=== PATIENT | female | born 1935 | race Caucasian/White ===

== ENCOUNTER 2018-01-12 11:02 | Inpatient (IN) ==
[2018-01-12] MEDS ORDERED: ASPIRIN 325 MG TABLET PO STA (11:42)
[2018-01-12] MEDS ORDERED: ONDANSETRON 4 MG/2 ML VIAL IV STA (11:42)
[2018-01-12] MEDS ORDERED: SODIUM CHLORIDE 0.9% 500 ML IV STA (11:42)
[2018-01-12 12:09] LABS: Basophils % 0.2 % (0.0-0.8); Eosinophils # 0.1 10*3/uL (0.0-0.87); Eosinophils % 1.5 % (0.00-10.9); Hematocrit 38.1 VOL% (35.7-47.0); Hemoglobin 12.9 GM/DL (12.0-16.0); Immature Granulocytes % 0.3 %; Immature Granulocytes Absolute 0.02 #; Lymphocytes % 15.6 % (21.3-54.2); Mean Corpuscular HGB Conc 33.9 GM/DL (32-36); Mean Corpuscular Hemoglobin 32 PG (27-34); Mean Corpuscular Volume 92.9 FL (87-102); Mean Platelet Volume 10.2 FL (9.6-12.0); Monocytes # 0.7 10*3/uL (0.11-0.8); Monocytes % 11.3 % (1.7-12.7); Neutrophils # 4.7 10*3/uL (1.4-7.4); Neutrophils % 71.1 % (38.7-73.9); Platelet Count 176 T/CUMM (130-400); Red Cell Distribution Width 12.6 % (9.3-17.3); White Blood Count 6.6 T/CUMM (4-12)
[2018-01-12 12:15] LABS: Apearance,Urine CLOUDY (Clear); Bacteria,Urine Many /HPF (Few); Bilirubin,Urine Negative (Negative); Blood, Urine Negative (Negative); Glucose,Urine (UA) Negative (Negative); Granular Casts,Urine 15 /LPF (0-1); Hyaline Casts,Urine 168 /LPF (0-3); Ketones,Urine Negative (Negative); Mucus,Urine Moderate /LPF (Occasional); Nitrite,Urine Negative (Negative); Protein,Urine 100 MG/DL; RBC,Urine 2 /HPF (0-4); Squamous Epithelial Cell,Urine Few /HPF (0-10); Urine Color Amber (Yellow); Urine Specific Gravity 1.016 (1.001-1.035); WBC,Urine 5 /HPF (0-6)
[2018-01-12] MEDS ORDERED: cefTRIAXone 1,000 MG in SODIUM CHLORIDE 0.9% 100 ML IV STA (12:25)
[2018-01-12 12:28] LABS: Barbiturates Screen,Urine Negative (Negative); Benzodiazepines Screen,Urine Negative (Negative); Cannabinoid Screen,Urine Negative (Negative); Opiate Screen,Urine Negative (Negative); Phencyclidine Screen,Urine Negative (Negative)
[2018-01-12 12:32] LABS: Alanine Aminotransferase 17 U/L (13-56); Albumin 3.6 G/DL (3.4-5.0); Alkaline Phosphatase 100 U/L (45-117); Aspartate Amino Transferase 14 U/L (0-37); Blood Urea Nitrogen 25 MG/DL (7-18); Calcium 8.8 MG/DL (8.5-10.1); Glucose 102 MG/DL (74-106); Osmolality,Calculated 284.3 MOS/KG (273-304); Potassium 3.8 MMOL/L (3.5-5.1); Sodium 141 MMOL/L (136-145); Total Protein 6.6 G/DL (6.4-8.3); Troponin I Only < 0.015 NG/ML (0.00-0.045)
[2018-01-12] MEDS ORDERED: cefTRIAXone 1,000 MG VIAL ONE (12:33)
[2018-01-12] MEDS ORDERED: ACETAMINOPHEN 325 MG TABLET PO PRN (13:25)
[2018-01-12] MEDS ORDERED: ENOXAPARIN 40 MG/0.4 ML SYRINGE SUBCUT SCH (13:30)
[2018-01-12 14:00] LABS: Thyroid Stimulating Hormone 0.345 uIU/ml (0.358-3.74)
[2018-01-12] MEDS: SODIUM CHLORIDE 0.9% 1,000 ML IV SCH (17:12)
[2018-01-12] MEDS: CARVEDILOL 12.5 MG TABLET PO SCH (20:46)
[2018-01-12] MEDS: METOPROLOL TARTRATE 50 MG TABLET PO SCH (20:47)
[2018-01-12] MEDS: APIXABAN 2.5 MG TABLET PO SCH (20:47)
[2018-01-12] MEDS: FLECAINIDE 50 MG TABLET PO SCH (20:50)
[2018-01-13 05:09] LABS: Basophils % 0.4 % (0.0-0.8); Eosinophils # 0.1 10*3/uL (0.0-0.87); Eosinophils % 2.4 % (0.00-10.9); Hemoglobin 12.6 GM/DL (12.0-16.0); Immature Granulocytes % 0.4 %; Immature Granulocytes Absolute 0.02 #; Lymphocytes # 1.5 10*3/uL (1.4-4.0); Lymphocytes % 28.4 % (21.3-54.2); Mean Corpuscular Hemoglobin 32 PG (27-34); Mean Corpuscular Volume 91.1 FL (87-102); Mean Platelet Volume 10.1 FL (9.6-12.0); Monocytes # 0.7 10*3/uL (0.11-0.8); Monocytes % 13.1 % (1.7-12.7); Neutrophils % 55.3 % (38.7-73.9); Platelet Count 171 T/CUMM (130-400); Red Blood Count 3.95 MC/CUMM (3.8-5.5); Red Cell Distribution Width 12.5 % (9.3-17.3); White Blood Count 5.4 T/CUMM (4-12)
[2018-01-13 05:53] LABS: Albumin 3.2 G/DL (3.4-5.0); Calcium 8.6 MG/DL (8.5-10.1); Osmolality,Calculated 285.8 MOS/KG (273-304); Potassium 3.5 MMOL/L (3.5-5.1); Total Protein 5.8 G/DL (6.4-8.3); VLDL CHOLESTEROL 26.8 MG/DL
[2018-01-13] MEDS: SODIUM CHLORIDE 0.9% 1,000 ML IV SCH (06:18)
[2018-01-13] MEDS ORDERED: LEVOTHYROXINE 75 MCG TABLET PO SCH (06:30)
[2018-01-13] MEDS ORDERED: cefTRIAXone 1,000 MG in SYRINGE 1 EACH IV SCH (09:00)
[2018-01-13] MEDS ORDERED: MULTIVITAMIN (OCUVITE) TABLET PO SCH (09:00)
[2018-01-13] MEDS ORDERED: PANTOPRAZOLE 40 MG TABLET PO SCH ×2 (09:00)
[2018-01-13] MEDS ORDERED: DILTIAZEM CD 240 MG CAPSULE PO SCH (09:00)
[2018-01-13] MEDS ORDERED: ASPIRIN EC 81 MG TABLET PO SCH (09:00)
[2018-01-13] MEDS: CARVEDILOL 12.5 MG TABLET PO SCH (09:47)
[2018-01-13] MEDS: METOPROLOL TARTRATE 50 MG TABLET PO SCH (09:47)
[2018-01-13] MEDS: FLECAINIDE 50 MG TABLET PO SCH (09:47)
[2018-01-13] MEDS: APIXABAN 2.5 MG TABLET PO SCH (09:47)
[2018-01-13] MEDS ORDERED: FLECAINIDE 100 MG TABLET PO SCH (09:49)
[2018-01-13 11:54] VITALS: BP 127/70
[2018-01-13] MEDS ORDERED: CARVEDILOL 25 MG TABLET PO SCH ×2 (13:30→21:00)
== END 2018-01-13 15:20 | disposition home or self-care (01) | DRG 312 ==
LOC: N.ED 11:02 → N.EDINP 13:23 → N.TELES 14:21

== ENCOUNTER 2018-04-15 10:27 | Observation (INO) ==
[2018-04-15] MEDS ORDERED: SODIUM CHLORIDE 0.9% 500 ML IV STA (10:49)
[2018-04-15 11:58] LABS: Basophils % 0.4 % (0.0-0.8); Eosinophils # 0.1 10*3/uL (0.0-0.87); Eosinophils % 1.3 % (0.00-10.9); Hematocrit 41.1 VOL% (35.7-47.0); Hemoglobin 14.1 GM/DL (12.0-16.0); Immature Granulocytes % 0.3 %; Immature Granulocytes Absolute 0.02 #; Lymphocytes # 1.5 10*3/uL (1.4-4.0); Lymphocytes % 18.9 % (21.3-54.2); Mean Corpuscular HGB Conc 34.3 GM/DL (32-36); Mean Corpuscular Hemoglobin 32 PG (27-34); Mean Corpuscular Volume 92.2 FL (87-102); Mean Platelet Volume 10.2 FL (9.6-12.0); Monocytes # 0.6 10*3/uL (0.11-0.8); Monocytes % 7.8 % (1.7-12.7); Neutrophils # 5.6 10*3/uL (1.4-7.4); Neutrophils % 71.3 % (38.7-73.9); Platelet Count 203 T/CUMM (130-400); Red Blood Count 4.46 MC/CUMM (3.8-5.5); Red Cell Distribution Width 13.1 % (9.3-17.3); White Blood Count 7.9 T/CUMM (4-12)
[2018-04-15 12:06] LABS: INR 1.1; PT Patient Result 11.3 SECS
[2018-04-15 12:29] LABS: Albumin 3.6 G/DL (3.4-5.0); Bilirubin,Total 1.1 MG/DL (0.2-1.0); Calcium 9.3 MG/DL (8.5-10.1); Osmolality,Calculated 286.8 MOS/KG (273-304); Potassium 3.7 MMOL/L (3.5-5.1); Thyroid Stimulating Hormone 1.68 uIU/ml (0.358-3.74); Total Protein 6.6 G/DL (6.4-8.3)
[2018-04-15 13:04] LABS: Apearance,Urine CLEAR (Clear); Bilirubin,Urine Negative (Negative); Blood, Urine Negative (Negative); Glucose,Urine (UA) Negative (Negative); Ketones,Urine 5 mg/dL (Negative); Mucus,Urine Occasional /LPF (Occasional); Nitrite,Urine Negative (Negative); Protein,Urine Negative; RBC,Urine <1 /HPF (0-4); Urine Color Yellow (Yellow); Urine Urobilinogen < 2.0 EU/DL (0.2-1.0); WBC,Urine <1 /HPF (0-6)
[2018-04-15] MEDS ORDERED: LABETALOL 100 MG/20 ML VIAL IV PRN (14:02)
[2018-04-15] MEDS ORDERED: FUROSEMIDE 40 MG TABLET PO PRN (14:08)
[2018-04-15] MEDS ORDERED: POTASSIUM CHLORIDE 20 MEQ TABLET PO PRN (14:08)
[2018-04-15 15:18] LABS: Risk Ratio 3.81
[2018-04-15 17:02] LABS: Barbiturates Screen,Urine Negative (Negative); Benzodiazepines Screen,Urine Negative (Negative); Cannabinoid Screen,Urine Negative (Negative); Opiate Screen,Urine Negative (Negative); Phencyclidine Screen,Urine Negative (Negative)
[2018-04-15] MEDS: CARVEDILOL 25 MG TABLET PO SCH ×2 (18:42→20:45)
[2018-04-15] MEDS: APIXABAN 2.5 MG TABLET PO SCH (20:35)
[2018-04-15] MEDS: FLECAINIDE 100 MG TABLET PO SCH (20:35)
[2018-04-15] MEDS: ROSUVASTATIN 20 MG TABLET PO SCH (20:36)
[2018-04-16 04:18] LABS: Basophils % 0.2 % (0.0-0.8); Eosinophils # 0.2 10*3/uL (0.0-0.87); Eosinophils % 2.6 % (0.00-10.9); Hematocrit 37.6 VOL% (35.7-47.0); Hemoglobin 12.5 GM/DL (12.0-16.0); Immature Granulocytes % 0.2 %; Immature Granulocytes Absolute 0.01 #; Lymphocytes # 1.9 10*3/uL (1.4-4.0); Lymphocytes % 28.7 % (21.3-54.2); Mean Corpuscular HGB Conc 33.2 GM/DL (32-36); Mean Corpuscular Hemoglobin 31 PG (27-34); Mean Corpuscular Volume 92.2 FL (87-102); Mean Platelet Volume 10.5 FL (9.6-12.0); Monocytes # 0.8 10*3/uL (0.11-0.8); Monocytes % 11.7 % (1.7-12.7); Neutrophils # 3.7 10*3/uL (1.4-7.4); Neutrophils % 56.6 % (38.7-73.9); Platelet Count 189 T/CUMM (130-400); Red Blood Count 4.08 MC/CUMM (3.8-5.5); Red Cell Distribution Width 13.1 % (9.3-17.3); White Blood Count 6.6 T/CUMM (4-12)
[2018-04-16 04:25] LABS: Calcium 8.8 MG/DL (8.5-10.1); Osmolality,Calculated 282.1 MOS/KG (273-304); Potassium 3.2 MMOL/L (3.5-5.1)
[2018-04-16] MEDS ORDERED: ACETAMINOPHEN 325 MG TABLET PO ONE (05:49)
[2018-04-16] MEDS: POTASSIUM CHLORIDE 20 MEQ TABLET PO PRN ×2 (06:01→10:19)
[2018-04-16] MEDS: LEVOTHYROXINE 75 MCG TABLET PO SCH (06:01)
[2018-04-16] MEDS: MULTIVITAMIN (OCUVITE) TABLET PO SCH (10:17)
[2018-04-16] MEDS: FLECAINIDE 100 MG TABLET PO SCH (10:17)
[2018-04-16] MEDS: PANTOPRAZOLE 40 MG TABLET PO SCH (10:17)
[2018-04-16] MEDS: VALSARTAN 80 MG TABLET PO SCH (10:17)
[2018-04-16] MEDS: CARVEDILOL 25 MG TABLET PO SCH ×2 (10:17→20:46)
[2018-04-16] MEDS: ASPIRIN EC 81 MG TABLET PO SCH (10:18)
[2018-04-16] MEDS: APIXABAN 2.5 MG TABLET PO SCH (10:18)
[2018-04-16] MEDS: APIXABAN 5 MG TABLET PO SCH (20:46)
[2018-04-16] MEDS: AMIODARONE 200 MG TABLET PO SCH (20:46)
[2018-04-16] MEDS: ROSUVASTATIN 20 MG TABLET PO SCH (20:46)
[2018-04-17] MEDS: LEVOTHYROXINE 75 MCG TABLET PO SCH (06:08)
[2018-04-17 07:05] LABS: Calcium 8.6 MG/DL (8.5-10.1); Potassium 3.9 MMOL/L (3.5-5.1)
[2018-04-17 08:03] VITALS: BP 124/66
[2018-04-17] MEDS: MULTIVITAMIN (OCUVITE) TABLET PO SCH (09:06)
[2018-04-17] MEDS: VALSARTAN 80 MG TABLET PO SCH (09:06)
[2018-04-17] MEDS: CARVEDILOL 25 MG TABLET PO SCH (09:06)
[2018-04-17] MEDS: APIXABAN 5 MG TABLET PO SCH (09:06)
[2018-04-17] MEDS: ASPIRIN EC 81 MG TABLET PO SCH (09:09)
[2018-04-17] MEDS: AMIODARONE 200 MG TABLET PO SCH (09:09)
[2018-04-17] MEDS: PANTOPRAZOLE 40 MG TABLET PO SCH (09:09)
[2018-04-17] MEDS ORDERED: CYANOCOBALAMIN 1000 MCG/1 ML VIAL IM ONE (09:30)
== END 2018-04-17 10:28 | disposition home or self-care (01) ==
LOC: EDUNIT# → EDBD → N.ED 10:27 → N.EDINP 10:27 → N.2E 17:54
PROVIDERS: ADMIT Internal Medicine; ATTEND Internal Medicine

== ENCOUNTER 2018-04-19 11:22 | Inpatient (IN) ==
[2018-04-19 12:50] LABS: Basophils % 0.3 % (0.0-0.8); Eosinophils # 0.1 10*3/uL (0.0-0.87); Eosinophils % 0.7 % (0.00-10.9); Hematocrit 40.9 VOL% (35.7-47.0); Hemoglobin 13.8 GM/DL (12.0-16.0); Immature Granulocytes % 0.4 %; Immature Granulocytes Absolute 0.03 #; Lymphocytes # 1.1 10*3/uL (1.4-4.0); Lymphocytes % 14.1 % (21.3-54.2); Mean Corpuscular HGB Conc 33.7 GM/DL (32-36); Mean Corpuscular Hemoglobin 32 PG (27-34); Mean Corpuscular Volume 93.4 FL (87-102); Mean Platelet Volume 10.3 FL (9.6-12.0); Monocytes # 0.9 10*3/uL (0.11-0.8); Monocytes % 11.6 % (1.7-12.7); Neutrophils # 5.4 10*3/uL (1.4-7.4); Neutrophils % 72.9 % (38.7-73.9); Platelet Count 196 T/CUMM (130-400); Red Blood Count 4.38 MC/CUMM (3.8-5.5); White Blood Count 7.4 T/CUMM (4-12)
[2018-04-19 13:18] LABS: Albumin 3.7 G/DL (3.4-5.0); Bilirubin,Total 0.7 MG/DL (0.2-1.0); Calcium 9.4 MG/DL (8.5-10.1); Osmolality,Calculated 279.4 MOS/KG (273-304); Potassium 4.3 MMOL/L (3.5-5.1)
[2018-04-19] MEDS ORDERED: CEFTAROLINE 600 MG in SODIUM CHLORIDE 0.9% 100 ML IV STA (13:23)
[2018-04-19] MEDS ORDERED: ONDANSETRON 4 MG/2 ML VIAL IV PRN (13:25)
[2018-04-19] MEDS ORDERED: ACETAMINOPHEN 325 MG TABLET PO PRN (13:25)
[2018-04-19] MEDS ORDERED: FUROSEMIDE 40 MG TABLET PO PRN (13:27)
[2018-04-19] MEDS ORDERED: SODIUM CHLORIDE 0.45% 1,000 ML IV SCH (13:30)
[2018-04-19] MEDS ORDERED: traMADol 50 MG TABLET PO PRN (16:31)
[2018-04-19] MEDS: CEFTAROLINE 600 MG in SODIUM CHLORIDE 0.9% 100 ML IV SCH (18:00)
[2018-04-19] MEDS: DOCUSATE SODIUM 100 MG CAPSULE PO SCH (20:41)
[2018-04-19] MEDS: ROSUVASTATIN 20 MG TABLET PO SCH (20:41)
[2018-04-19] MEDS: APIXABAN 2.5 MG TABLET PO SCH (20:41)
[2018-04-19] MEDS: AMIODARONE 200 MG TABLET PO SCH (20:41)
[2018-04-20 05:17] LABS: Calcium 8.5 MG/DL (8.5-10.1); Osmolality,Calculated 282.1 MOS/KG (273-304); Potassium 3.6 MMOL/L (3.5-5.1)
[2018-04-20 05:31] LABS: Basophils % 0.2 % (0.0-0.8); Eosinophils # 0.1 10*3/uL (0.0-0.87); Eosinophils % 2.3 % (0.00-10.9); Hematocrit 34.4 VOL% (35.7-47.0); Hemoglobin 12.1 GM/DL (12.0-16.0); Immature Granulocytes % 0.3 %; Immature Granulocytes Absolute 0.02 #; Lymphocytes # 1.5 10*3/uL (1.4-4.0); Lymphocytes % 23.7 % (21.3-54.2); Mean Corpuscular HGB Conc 35.2 GM/DL (32-36); Mean Corpuscular Hemoglobin 32 PG (27-34); Mean Corpuscular Volume 89.6 FL (87-102); Mean Platelet Volume 10.5 FL (9.6-12.0); Monocytes # 0.8 10*3/uL (0.11-0.8); Monocytes % 13.1 % (1.7-12.7); Neutrophils # 3.7 10*3/uL (1.4-7.4); Neutrophils % 60.4 % (38.7-73.9); Platelet Count 191 T/CUMM (130-400); Red Blood Count 3.84 MC/CUMM (3.8-5.5); Red Cell Distribution Width 13.1 % (9.3-17.3); White Blood Count 6.2 T/CUMM (4-12)
[2018-04-20] MEDS: CEFTAROLINE 600 MG in SODIUM CHLORIDE 0.9% 100 ML IV SCH ×2 (06:04→17:18)
[2018-04-20] MEDS: LEVOTHYROXINE 75 MCG TABLET PO SCH (06:04)
[2018-04-20] MEDS: ASPIRIN EC 81 MG TABLET PO SCH (08:39)
[2018-04-20] MEDS: AMIODARONE 200 MG TABLET PO SCH ×2 (08:39→21:15)
[2018-04-20] MEDS: DOCUSATE SODIUM 100 MG CAPSULE PO SCH ×2 (08:39→21:15)
[2018-04-20] MEDS: APIXABAN 2.5 MG TABLET PO SCH ×2 (08:40→21:15)
[2018-04-20] MEDS ORDERED: PANTOPRAZOLE 40 MG TABLET PO SCH (09:00)
[2018-04-20] MEDS ORDERED: POTASSIUM CHLORIDE 20 MEQ TABLET PO PRN (10:46)
[2018-04-20] MEDS: CARVEDILOL 25 MG TABLET PO SCH ×2 (11:19→21:15)
[2018-04-20] MEDS: LOSARTAN 25 MG TABLET PO SCH (11:19)
[2018-04-20] MEDS: ROSUVASTATIN 20 MG TABLET PO SCH (21:15)
[2018-04-21 04:18] LABS: Basophils % 0.3 % (0.0-0.8); Eosinophils # 0.2 10*3/uL (0.0-0.87); Eosinophils % 2.4 % (0.00-10.9); Hematocrit 36.2 VOL% (35.7-47.0); Hemoglobin 12.2 GM/DL (12.0-16.0); Immature Granulocytes % 0.1 %; Immature Granulocytes Absolute 0.01 #; Lymphocytes # 1.7 10*3/uL (1.4-4.0); Lymphocytes % 25.4 % (21.3-54.2); Mean Corpuscular HGB Conc 33.7 GM/DL (32-36); Mean Corpuscular Hemoglobin 31 PG (27-34); Mean Corpuscular Volume 92.1 FL (87-102); Mean Platelet Volume 10.4 FL (9.6-12.0); Monocytes # 0.9 10*3/uL (0.11-0.8); Monocytes % 13.4 % (1.7-12.7); Neutrophils # 3.9 10*3/uL (1.4-7.4); Neutrophils % 58.4 % (38.7-73.9); Platelet Count 193 T/CUMM (130-400); Red Blood Count 3.93 MC/CUMM (3.8-5.5); Red Cell Distribution Width 12.8 % (9.3-17.3); White Blood Count 6.7 T/CUMM (4-12)
[2018-04-21 04:59] LABS: Calcium 8.6 MG/DL (8.5-10.1); Osmolality,Calculated 283.1 MOS/KG (273-304); Potassium 3.6 MMOL/L (3.5-5.1)
[2018-04-21] MEDS: CEFTAROLINE 600 MG in SODIUM CHLORIDE 0.9% 100 ML IV SCH (06:17)
[2018-04-21] MEDS: LEVOTHYROXINE 75 MCG TABLET PO SCH (06:17)
[2018-04-21] MEDS ORDERED: CYANOCOBALAMIN 100 MCG TABLET PO SCH (09:00)
[2018-04-21] MEDS ORDERED: PANTOPRAZOLE 40 MG TABLET PO SCH (09:00)
[2018-04-21] MEDS: ASPIRIN EC 81 MG TABLET PO SCH (10:31)
[2018-04-21] MEDS: CARVEDILOL 25 MG TABLET PO SCH (10:32)
[2018-04-21] MEDS: APIXABAN 2.5 MG TABLET PO SCH (10:32)
[2018-04-21] MEDS: DOCUSATE SODIUM 100 MG CAPSULE PO SCH (10:32)
[2018-04-21] MEDS: AMIODARONE 200 MG TABLET PO SCH (10:32)
[2018-04-21] MEDS: LOSARTAN 25 MG TABLET PO SCH (10:32)
[2018-04-21 16:21] VITALS: BP 143/73
== END 2018-04-21 16:45 | disposition home or self-care (01) | DRG 300 ==
LOC: N.ED 11:22 → N.EDINP 13:25 → N.2E 15:09
PROVIDERS: ADMIT Family Medicine; ATTEND Family Medicine